=== PATIENT | male | born 1990 | race Caucasian/White ===

== ENCOUNTER 2021-03-02 13:57 | Outpatient (RCR) | payer BC, SELFPAY ==
--- NOTE | 2021-03-02 15:12 | HP.PTEVAL_ITS ---
Patient's Visit Information ADAL DIAL is a 30 year old M referred to Physical Therapy by CECIL Matthews with a diagnosis of LB muscle strain. Date of Evaluation: 03/02/21 Physical Therapist: Gil Gracia DPT, OCS, CSCS - Visit Plan Frequency: 3x /Week Duration: 2-4 Weeks Plan: 3x/week for 2-4 weeks for. 1. upper leg rollotu and stretching. LB ROM to HEP. core mat strength to HEP. gym based general ex to community gym. - Subjective Bad back. I have consistent soreness and pain. Had laparoscopic surgery in [place] a couple years ago and has been sore ever since. Not terribly active to exercise. Has seen chiropractoic and it helps for a while. Recently has gotten nerve pain going down to feet at times and was mostly at night and into pad of feet. No numbness or tingly in legs. In pain 60% of time. Pattern i standing in place makes him fatigued. Stretching helps. Sleep is a problem as he gets up with neck adn back stiffness, again stretching helps. movement helps. Sitting is crummy posture but can do OK if sits appropriately. 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 Tired after work. Hobbies include indoor stuff video games and the like. Hiking or running does not make him worse. Crossfit. - Pain LBP Pain Intensity (Out of 10): 0 Pain Intensity Range: 0, 1 - Objective Walks stiff but normal and I, short steps. Trasnfer I. HS and quads and hip flexors are moderately. Posture is flat lordosis in LS,, kyphotic thoracic spine. LB AROM ext mod limited, flexion LB min deficits, SB min deficits. Lumbar compression-. SLR and slump -. reflexes 2/3 patella and achilles. Sensation LE WNl to gross light touch. Strength LE 4 except R HS which is 4-. Core strength 3+ without pain rotations and ext and flexion - Balance/Special Test Scores Oswestry Low Back Score: 4 - Goals Goal 1:: Sleep without waking due to back pain Goal Time Frame: 2-4 Weeks Goal 2:: I appropriate HEP of core adn Stretching and gym ex to tolerance. Goal Time Frame: 2-4 Weeks Goal 3:: Pain 0-1/10 at all times and 90% better. Goal Time Frame: 2-4 Weeks Goal 4:: Work without increased pain Goal Time Frame: 2-4 Weeks - Rehabilitation Potential Physical Therapy Diagnosis: LB strain and deconditioning. Rehabilitation Potential: Fair - Anticipated Interventions Patient/Client Instruction: Educate patient on: Condition, Plan of Care For the Purpose of:: To decrease pain, To increase ROM, To improve muscle performance and motor function Therapeutic Exercise to Include: Strength training, Postural training, Flexibilty training, Active ROM, Dynamic Lumbar Stabilization For the Purpose of:: To decrease pain, To improve nutrient delivery to tissue, To improve muscle performance and motor function, To improve performance and independence with ADL's, To improve health of tissue Manual Therapy Techniques to Include: Mobilization, Soft tissue mobilization For the Purpose of:: To decrease pain, To increase ROM Thank you for the opportunity to evaluate your patient. For Medicare and Medicare HMO plans, please review the plan of care and approve it. It will need to be FAXED BACK to us at [phone] for Medicare purposes. For Medicare only, by signing this I certify the plan of care. Please let me know if there are questions or concerns regarding this plan of care. Physician Signature: Date:
--- NOTE | 2021-04-16 14:49 | HP.PT.NRP ---
ADAL DIAL was seen in my office for initial evaluation on 03/02/21. The following Plan of Care was established for this patient: Initial Frequency: 3x /Week Initial Duration: 2-4 Weeks Patient/Client Instruction: Educate patient on: Condition, Plan of Care For the Purpose of:: To decrease pain, To increase ROM, To improve muscle performance and motor function Therapeutic Exercise to Include: Strength training, Postural training, Flexibilty training, Active ROM, Dynamic Lumbar Stabilization For the Purpose of:: To decrease pain, To improve nutrient delivery to tissue, To improve muscle performance and motor function, To improve performance and independence with ADL's, To improve health of tissue Manual Therapy Techniques to Include: Mobilization, Soft tissue mobilization For the Purpose of:: To decrease pain, To increase ROM This patient was last seen in our office 03/02/21. Pertinent comments regarding their Physical therapy will appear below: Pt seen one visit of POC and further visits denied by insurance. Will discontinue at this time. At this point I will be discontinuing this patient from physical therapy. I would be happy to see this patient again in the future if found appropriate by the physician. Thank you! Gil Gracia, DPT, OCS, CSCS Balance/Gait/Functional tests - Balance/Special Test Scores Oswestry Low Back Score: 4
== END 2021-03-02 19:00 | disposition home or self-care (01) ==
LOC: PT 13:57
PROVIDERS: Referring Provider Physician Assistant Surgical; Visit Provider Physician Assistant Surgical
DX: S39.012D Strain of muscle, fascia and tendon of lower back, subsequent encounter (principal); X50.3XXD Overexertion from repetitive movements, subsequent encounter
CPT/HCPCS: 97161

== ENCOUNTER → 2022-07-19 | Outpatient (CLI) | payer BC, SELFPAY ==
[2022-07-19 08:00] VITALS: BP 120/79; PULSE 89; RESP 16; TEMP 35.6; BMI 28.2
[2022-07-19] MEDS: 0.9% NaCl Peripheral Flush Adult/Peds IV (08:05)
[2022-07-19] MEDS: 0.9% NaCl IVPB Med Flush (250 mL) 15 ML IV (08:27)
[2022-07-19] MEDS: Dextrose 5% 250 ML 15 ML IV (08:48)
[2022-07-19 09:55] VITALS: BP 127/83; PULSE 80; RESP 16; TEMP 36; O2SAT 98
== END | disposition home or self-care (01) ==
DX: K50.819 Crohn's disease of both small and large intestine with unspecified complications (principal)
CPT/HCPCS: 96372; J7050; A4216; J2327

== ENCOUNTER → 2022-08-16 | Outpatient (CLI) | payer BC, SELFPAY ==
[2022-08-16 11:35] VITALS: BP 124/76; PULSE 85; RESP 16; O2SAT 96
[2022-08-16] MEDS: Dextrose 5% 250 ML 15 ML IV (11:39)
[2022-08-16 13:36] VITALS: BP 126/87; PULSE 86; RESP 16
== END | disposition home or self-care (01) ==
LOC: MEDOUTP 11:25
DX: K50.819 Crohn's disease of both small and large intestine with unspecified complications (principal)
CPT/HCPCS: 96365; A4216; J2327

== ENCOUNTER → 2022-09-20 | Outpatient (CLI) | payer BC, SELFPAY ==
[2022-09-20 10:14] VITALS: BP 133/101; PULSE 77; RESP 14; TEMP 35.8; O2SAT 96; BMI 28.2
[2022-09-20] MEDS: Dextrose 5% 250 ML 15 ML IV (10:28)
[2022-09-20 12:29] VITALS: BP 131/91; PULSE 88; RESP 16; TEMP 36.2; O2SAT 95
== END | disposition home or self-care (01) ==
DX: K50.819 Crohn's disease of both small and large intestine with unspecified complications (principal)
CPT/HCPCS: 96365; A4216; J2327

== ENCOUNTER 2022-10-30 15:00 | Emergency (ER) | payer OTHER, BC, SELFPAY ==
[2022-10-30 15:01] VITALS: BP 149/104; PULSE 62; RESP 16; TEMP 36.8; O2SAT 98
[2022-10-30 15:22] VITALS: BMI 27.4
--- NOTE | 2022-10-30 15:25 | RAD_ITS ---
STUDY: X-RAY - LEFT ANKLE REASON FOR EXAM: Male, 32 years old. Twisting injury. Pain. TECHNIQUE: 3 view(s) of the ankle. COMPARISON: None. FINDINGS: Normal visualized distal tibia and fibula. Normal medial and lateral malleoli. Normal tibiotalar articulation and ankle mortise. Normal visualized talus and calcaneus. The visualized subtalar, talonavicular, calcaneocuboid and tarsal articulations are normal. Diffuse soft tissue swelling. RAD/Ankle min 3 Views IMPRESSION: Diffuse soft tissue swelling. Worse on the lateral side. Electronically Signed: Obinna Azul MD at 15:40 EDT ,
--- NOTE | 2022-10-30 15:52 | EDS_ITS ---
HPI History of Present Illness Chief Complaint: Lower Extremity Injury Narrative Narrative: Patient is a 32-year-old male who is presenting to the ER with chief complaint of left ankle pain. Patient is play basketball prior to arrival. Patient stated that he just started playing basketball, and within a couple minutes he went to jump up to grab a rebound, landed on his left ankle with a inversion injury. Patient is uncertain if he stepped on a uneven part of the hard top versus stepping on somebody's foot, he is unsure. Patient stated that he rolled his ankle, heard a popping sensation, and noted swelling to the left ankle. Patient is having hard time ambulating on the ankle. There was a nurse that was playing with him as well, the nurse gave him 2 Motrin at that time. Patient had ice applied when he got to the ER. Patient wants nothing else for pain at this time. Patient did not fall. He has no other acute injury. Patient's only complaint of left ankle pain. Patient's is at bedside. 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 Patient has never injured, or broken his left ankle or foot previously. [facility] Medical History Anemia Chronic neck and back pain Crohn's disease Diarrhea Fatigue Physical exam, pre-employment Severe headache Home Medications risankizumab-rzaa 360 mg/2.4 mL (150 mg/mL) subcut wearable injector (Skyrizi) ml subcut 10/15/22 [History Last Taken Unknown] Allergy/AdvReac Type Severity Reaction Status Date / Time No Known Allergies Allergy Verified 10/30/22 15:03 Family History Other Hypertension Surgical History History of intestinal surgery Social History Smoking Status: Never smoker alcohol intake: never ROS ROS ED ROS Narrative REVIEW OF SYSTEMS: Unless otherwise stated in this report the patient's positive and negative responses for review of systems for constitutional, eyes, ENT, cardiovascular, respiratory, gastrointestinal, neurological, , musculoskeletal, and integument systems and related systems to the presenting problem are either stated in the history of present illness or were not pertinent or were negative for the symptoms and/or complaints related to the presenting medical problem. EXAM Physical Exam Narrative Exam Narrative: Vital signs reviewed and patient is not hypoxic. General: The patient appears well and in no apparent distress. Patient is resting comfortably on cart. Not toxic, lethargic, or listless. Skin: Warm, dry, no pallor noted. There is no rash noted. Head: Normocephalic, atraumatic Eye: Normal conjunctiva, no drainage, EOMI. PERRL. Ears, Nose, Mouth, and Throat: oral mucosa is moist. Nares patent. Mouth without vesicles. Cardiovascular: Regular Rate and Rhythm, no murmurs, gallops, or rubs Respiratory: Patient is in no distress, no accessory muscle use, lungs are clear to auscultation, no wheezing, rales or rhonchi Musculoskeletal: The patient has full range of motion of all extremities and joints with no difficulty except the left ankle. Patient has moderate swelling/inflammation with no ecchymosis to left lateral malleolus with moderate tenderness palpation to distal fibula. Patient has minimal tenderness palpation to the medial malleolus of the left ankle. Patient's Achilles tendon is intact. No pain to proximal fibular head, no pain to the base of the left fifth metatarsal. Patient has no pain to the midfoot or the left foot. Patient is full range of motion of his left knee and no difficulty.. Patient has no motor, no sensory deficits. Neurological: A&O x4, normal speech, no focal neurological deficits. Psychiatric: Cooperative Const Vital Signs: 10/30/22 15:01 Temperature 98.2 F Temperature Source Temporal Pulse Rate 62 Respiratory Rate 16 Blood Pressure 149/104 H Blood Pressure Mean 119 Pulse Ox 98 Oxygen Delivery Method Room Air MDM MDM MDM Narrative Medical decision making narrative: Patient left ankle x-ray shows no acute fracture dislocation or acute abnormality. Patient was placed in a Gulshan wrap, Aircast and crutches. Education on ice was done at bedside. Patient will use weightbearing as tolerated. Patient will follow-up with and establish PCP along with orthopedic surgery. Name and number was provided. Patient does not currently have a PCP. Patient was educated on alternate Tylenol and Motrin/ibuprofen for pain. Patient will be weightbearing as tolerated, patient will follow-up with PCP orthopedics, no question of discharge History & Record Review Additional record(s) reviewed:: Prior inpatient record Radiography Chest X-Ray - ED: Read by ED Physician (Left ankle x-ray shows no acute fracture, dislocation or acute normality. Soft tissue swelling noted.) Diagnostic Testing: Clinical Impression(s) from Imaging Studies Ankle X-Ray 10/30/22 15:25 IMPRESSION: Diffuse soft tissue swelling. Worse on the lateral side. Electronically Signed: Obinna Azul MD at 15:40 EDT , Treatment and Re-Evaluation :: Procedure note: Patient was placed in a left Gulshan wrap, Aircast and crutches. Teaching treat was done at bedside. Splint was assisted with Dr. Ho. The patient was neurovascular intact before and after the splint was placed. The affected bones/injured area had proper alignment in a splint. Education on splint care at home was given at bedside. Patient and family had no questions at disposition. Discharge Plan Triage Chief Complaint: Lower Extremity Injury ED Provider: Abdoulaye Ho Dx/Rx/DC Orders Clinical Impression: Acute left ankle pain, Moderate left ankle sprain Instructions: Treating Ankle Sprains, ED Bandage Elastic Wrap, ED Ankle Sprain (Adult), ED RICE, ED Splints and Casts Prescriptions: No Action Skyrizi 360 mg/2.4 mL (150 mg/mL) wearable injector subcut Stand Alone Forms: ED Work / School Excuse Primary Care Provider: Care Physician,No Primary Referrals: Care Physician,No Primary [Primary Care Provider] - Activity Restrictions/Additional Instructions: Ice 20 minutes on, 20 minutes off. Alternate Tylenol Motrin every 4 hours. Follow-up follow-up with PCP and establish PCP orthopedic surgery if needed. Weightbearing as tolerated. Use crutches for the next 3 to 4 days at least. Eventually get rid of the crutches, then right of the Aircast, then read to the Gulshan wrap. Disposition Disposition: Home, Self Care
== END 2022-10-30 16:56 | disposition home or self-care (01) ==
PROVIDERS: Emergency Provider Emergency Medicine; Visit Provider Emergency Medicine
DX: S93.402A Sprain of unspecified ligament of left ankle, initial encounter (principal); K50.90 Crohn's disease, unspecified, without complications; Y93.67 Activity, basketball; X58.XXXA Exposure to other specified factors, initial encounter; Z79.899 Other long term (current) drug therapy
CPT/HCPCS: 29515; 73610; 99283

== ENCOUNTER → 2022-11-22 | Outpatient (CLI) | payer OTHER, BC, SELFPAY ==
--- NOTE | 2022-11-22 15:42 | RAD_ITS ---
STUDY: X-RAY - LEFT ANKLE REASON FOR EXAM: Male, 32 years old. Pain and swelling for 3 weeks TECHNIQUE: 3 view(s) of the ankle. COMPARISON: 10/30/2022 FINDINGS: Normal visualized distal tibia and fibula. Normal medial and lateral malleoli. Normal tibiotalar articulation and ankle mortise. Normal visualized talus and calcaneus. The visualized subtalar, talonavicular, calcaneocuboid and tarsal articulations are normal. Persistent but decreased lateral ankle soft tissue swelling. RAD/Ankle min 3 Views IMPRESSION: Persistent but decreased lateral ankle soft tissue swelling. No fracture or malalignment. MRI may be useful. Electronically Signed: Dwight Sood (Brooks), at 16:17 EDT ,
== END | disposition home or self-care (01) ==
LOC: MTRAD 15:39
PROVIDERS: Referring Provider Physician Assistant; Visit Provider Physician Assistant
DX: M25.572 Pain in left ankle and joints of left foot (principal); S93.402A Sprain of unspecified ligament of left ankle, initial encounter
CPT/HCPCS: 73610

== ENCOUNTER 2022-12-05 07:12 | Outpatient (CLI) | payer OTHER, BC, SELFPAY ==
--- NOTE | 2022-12-05 07:17 | MRI_ITS ---
HISTORY: Left lateral ankle pain, ligament sprain TECHNIQUE: Multiplanar and multisequence MR images of the left ankle were obtained without intravenous contrast. 195 images. COMPARISON: XR 11/22/2022, 10/30/2022. FINDINGS: BONE: Mild bone marrow edema of the medial and lateral malleoli. No acute fracture or osteochondral injury identified. JOINT: Articular cartilage intact. Trace tibiotalar joint fluid. Normal alignment. LIGAMENTS: Intact deltoid and anterior and posterior syndesmotic ligaments. Mildly attenuated anterior talofibular ligament. Mild increased signal in the posterior talofibular ligament. TENDONS: No Achilles tendon rupture. Increased signal in crescentic morphology of the peroneus brevis tendon. No high-grade tear of the flexor or extensor tendons. Trace noncircumferential fluid in the flexor tendon sheaths. PLANTAR FASCIA: No acute tear. SINUS TARSI: Preservation of fat in the sinus tarsi. OTHER SOFT TISSUES: No subcutaneous fluid collection or significant intramuscular edema. MRI/Lower Ext Joint Only (Routine) IMPRESSION: Mild bone marrow contusions of the medial and lateral malleoli of the left ankle. Split tear and tendinopathy of the peroneus brevis tendon. Mild anterior and posterior talofibular ligament sprain. Electronically Signed: Nohelia Woods MD at 9:06 EDT ,
== END 2022-12-05 23:59 | disposition home or self-care (01) ==
LOC: MRI 07:14
PROVIDERS: Referring Provider Physician Assistant; Visit Provider Physician Assistant
DX: S93.402D Sprain of unspecified ligament of left ankle, subsequent encounter (principal)
CPT/HCPCS: 73721; 97110

== ENCOUNTER 2023-01-13 10:30 | Outpatient (RCR) | payer OTHER, BC, SELFPAY ==
--- NOTE | 2022-11-15 12:07 | HP.PTEVAL_ITS ---
Patient's Visit Information ADAL DIAL is a 32 year old M referred to Physical Therapy by CECIL Carson with a diagnosis of L ankle sprain. Date of Evaluation: 11/15/22 Physical Therapist: Khari Estrada, PT, ATC - Visit Plan Frequency: 2-3x /Week Duration: 4-6 Weeks Plan: L ankle stretching and strengthening, PROM and mobs, balance and proprio, bike, and HEP - Subjective DOI: 10/30/22. Pt reports he was playing basketball at work and sprained his L ankle. Pt notes he has never sprained his L ankle like this before. Pt notes he had x-rays which revealed no fractures. Pt notes he has noticed a lot of improvement over the past 2 days. Pt reports he is still sore, but the pain has reduced some. Pt reports he has chromes disease, and that will on occasion refer pain down his legs and make his ankle hurt a little worse. Pt notes he was placed in an aircast at the hospital, but has since transitioned into an ankle brace which provides adequate support. Pt notes he is able to go for short walks now. Pt reports he has stairs at home and has a really difficult time trying to descend his stairs. 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 1/10 pain while sitting here at rest, 3/10 pain at worst (walking at the grocery store). Pt notes sleep difficulty at this time secondary to pain - Pain L ankle Pain Intensity (Out of 10): 1 Pain Intensity Range: 3 - Objective Neuro: B LE sensation is WNL to light touch. Palpation: Pt is very tender along the ant tib-fib ligament. Obvious swelling noted at this time. 1+pitting edema noted. Girth: L ankle 58 cm, R ankle 57 cm. ROM: L ankle DF= -12, PF= 42, Inv= 15, Ever= 2; R ankle DF= 8, PF= 53, Inver= 32, ever= 10 degrees. MMT: L ankle DF= 17, PF= 13, Inv= 10, Ever= 10 #F; R ankle DF= 33, PF= 40, Inver= 35, ever= 38 #F - Balance/Special Test Scores Lower Extremity Functional Score: 43 - Goals Goal 1:: Decrease L ankle pain x 50% to aid with sleep Goal Time Frame: 4-6 Weeks Goal 2:: Increase L ankle DF ROM x 20 degrees to aid with restoring a more normalized gait pattern Goal Time Frame: 4-6 Weeks Goal 3:: Increase L ankle strength x 5-10 #F to aid with preventing future ankle sprains Goal Time Frame: 4-6 Weeks Goal 4:: I with HEP Goal Time Frame: 4-6 Weeks - Rehabilitation Potential Physical Therapy Diagnosis: Pt has L ankle pain, weakness, and limited ROM secondary to L ankle sprain Rehabilitation Potential: Good - Anticipated Interventions Patient/Client Instruction: Educate patient on: Condition, Plan of Care For the Purpose of:: To improve self management Therapeutic Exercise to Include: Strength training, Endurance training, Balance training, Flexibilty training, Passive ROM, Active ROM For the Purpose of:: To decrease pain, To increase ROM, To improve muscle performance and motor function Cryotherapy (ice pack, ice massage): Yes For the Purpose of:: To decrease pain Thank you for the opportunity to evaluate your patient. For Medicare and Medicare HMO plans, please review the plan of care and approve it. It will need to be FAXED BACK to us at [phone] for Medicare purposes. For Medicare only, by signing this I certify the plan of care. Please let me know if there are questions or concerns regarding this plan of care. Physician Signature: Date:
--- NOTE | 2022-12-17 12:00 | HP.PTREVAL ---
Re-Evaluation Intro: CECIL Carson, It has been my pleasure to treat ADAL DIAL over the last 12 visits for L ankle sprain. Please see the progress note below for an update on the physical therapy plan of care! Subjective Subjective: Pt reports Objective Objective/Function: L ankle pain ranges from 1-3/10 L ankle MMT: DF= 35, PF= 54, Inv= 18, ever= 20 #F L ankle DF ROM: 5 degrees Pt is progressing well with pain and strength at this time Plan Plan Plan: L ankle stretching and strengthening, PROM and mobs, balance and proprio, bike, and HEP Balance/Gait/Functional tests Balance/Special Test Scores Lower Extremity Functional Score: 64 Goals Goals Goal 1:: Decrease L ankle pain x 50% to aid with sleep Goal Time Frame: 4-6 Weeks Goal Progress: Progressing Goal 2:: Increase L ankle DF ROM x 20 degrees to aid with restoring a more normalized gait pattern Goal Time Frame: 4-6 Weeks Goal Progress: Progressing Goal 3:: Increase L ankle strength x 5-10 #F to aid with preventing future ankle sprains Goal Time Frame: 4-6 Weeks Goal Progress: Progressing Goal 4:: I with HEP Goal Time Frame: 4-6 Weeks Anticipated Interventions Anticipated Interventions Patient/Client Instruction: Educate patient on: Condition and Plan of Care For the Purpose of:: To improve self management Therapeutic Exercise to Include: Strength training, Endurance training, Balance training, Flexibilty training, Passive ROM and Active ROM For the Purpose of:: To decrease pain, To increase ROM and To improve muscle performance and motor function Cryotherapy (ice pack, ice massage): Yes For the Purpose of:: To decrease pain Re-Evaluation Ending Re-evaluation ending: Please do not hesitate to contact me at [phone] by phone or if you have questions or concerns regarding this new plan of care! Sincerely, Khari Estrada, PT, ATC
--- NOTE | 2022-12-17 13:10 | HP.PTREVAL ---
Re-Evaluation Intro: CECIL Carson, It has been my pleasure to treat ADAL DIAL over the last 12 visits for L ankle sprain. Please see the progress note below for an update on the physical therapy plan of care! Subjective Subjective: Pt reports Objective Objective/Function: L ankle pain ranges from 1-3/10 L ankle MMT: DF= 35, PF= 54, Inv= 18, ever= 20 #F L ankle DF ROM: 5 degrees Pt is progressing well with pain and strength at this time Plan Plan Plan: L ankle stretching and strengthening, PROM and mobs, balance and proprio, bike, and HEP Balance/Gait/Functional tests Balance/Special Test Scores Lower Extremity Functional Score: 64 Goals Goals Goal 1:: Decrease L ankle pain x 50% to aid with sleep Goal Time Frame: 4-6 Weeks Goal Progress: Progressing Goal 2:: Increase L ankle DF ROM x 20 degrees to aid with restoring a more normalized gait pattern Goal Time Frame: 4-6 Weeks Goal Progress: Progressing Goal 3:: Increase L ankle strength x 5-10 #F to aid with preventing future ankle sprains Goal Time Frame: 4-6 Weeks Goal Progress: Progressing Goal 4:: I with HEP Goal Time Frame: 4-6 Weeks Anticipated Interventions Anticipated Interventions Patient/Client Instruction: Educate patient on: Condition and Plan of Care For the Purpose of:: To improve self management Therapeutic Exercise to Include: Strength training, Endurance training, Balance training, Flexibilty training, Passive ROM and Active ROM For the Purpose of:: To decrease pain, To increase ROM and To improve muscle performance and motor function Cryotherapy (ice pack, ice massage): Yes For the Purpose of:: To decrease pain Re-Evaluation Ending Re-evaluation ending: Please do not hesitate to contact me at [phone] by phone or if you have questions or concerns regarding this new plan of care! Sincerely, Khari Estrada, PT, ATC
--- NOTE | 2023-01-13 12:01 | HP.PTDCSUM ---
Discharge Summary D/C summary: It has been my pleasure to treat ADAL DIAL referred by CECIL Carson, with the diagnosis of L ankle sprain for a total of 24 visit(s). Discharge Date: Please see the following information for a summary of their discharge status. Subjective Subjective: I feel really good now Pain L ankle: Pain Intensity (Out of 10): 0 Overall Improvement % Improvement: 90 Objective Objective/Function: L ankle pain ranges from 0-3/10 L ankle MMT: DF= 42, PF= 55 #F L ankle DF ROM= 10 degrees Pt is I with HEP. Rx goals achieved Goals Goal 1:: Decrease L ankle pain x 50% to aid with sleep Goal Progress: Goal Met Goal 2:: Increase L ankle DF ROM x 20 degrees to aid with restoring a more normalized gait pattern Goal Progress: Goal Met Goal 3:: Increase L ankle strength x 5-10 #F to aid with preventing future ankle sprains Goal Progress: Goal Met Goal 4:: I with HEP Goal Progress: Goal Met Plan Plan: Discharge to HEP D/C Information d/c sentence: If there are questions or concerns regarding this patient's physical therapy, please feel free to call me at [phone]. Thank you for the referral of this patient. Sincerely, Khari Estrada, PT, ATC Balance/Gait/Functional tests Balance/Special Test Scores Lower Extremity Functional Score: 75
== END 2023-01-13 13:16 | disposition home or self-care (01) ==
LOC: PT 10:30
PROVIDERS: Referring Provider Physician Assistant; Visit Provider Physician Assistant
DX: S93.402D Sprain of unspecified ligament of left ankle, subsequent encounter (principal)
CPT/HCPCS: 97014; 97110; 97140; 97161; 97164; G0283

== ENCOUNTER 2023-12-28 10:29 | Emergency (ER) | payer OTHER, SELFPAY ==
[2023-12-28 10:30] VITALS: BP 132/92; PULSE 117; RESP 18; TEMP 36.1; O2SAT 97; BMI 28.3
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
--- NOTE | 2023-12-28 10:57 | CT_ITS ---
INDICATION: MANDIBLE INJURY EXAMINATION: CT FACIAL BONES - CT Maxillofacial W/O Contrast Injection TECHNIQUE: Helically acquired images were obtained of the facial bones. A radiation dose optimization technique was used for this scan. The protocol utilizes one or more of the following dose reduction techniques: automated exposure control, adjustment of mA and/or kV according to patient size,and/or use of iterative reconstruction technique. IV Contrast dosage and agent: None. RADIATION DOSAGE (If Supplied By Facility): CTDIvol = ( 29.38 ) mGy, DLP = ( 620.92 ) mGycm COMPARISON: Prior study dated: Head CT dated December 28, 2023 FINDINGS: SOFT TISSUES: No focal subcutaneous swelling. No discrete fluid collections. VISUALIZED PARANASAL SINUSES: There is trace opacification of the ethmoid and maxillary sinuses. VISUALIZED MASTOID AIR CELLS: Clear. FACIAL BONES, MANDIBLE AND TMJs: There is a fracture of the anterior nasal spine. No lytic or blastic abnormality. VISUALIZED DENTITION: No periodontal osseous erosion. ORBITAL CONTENTS: Both globes, extraocular muscles and retrobulbar fat appear unremarkable. CT/Sinus/Facial Bone IMPRESSION: Anterior nasal spine fracture. Minimal opacification of the ethmoid and maxillary sinuses consistent with a history of sinusitis. Electronically Signed: Rita Armenta MD at 11:48 EDT ,
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
[2023-12-28] MEDS: Acetaminophen 500 MG Tablet 1000 MG PO (11:25)
[2023-12-28] MEDS: Diphth,Pertuss(Acell),Tet Vac 0.5 ML Vial IM (11:25)
[2023-12-28 12:00] VITALS: BP 142/99; PULSE 84; RESP 16; TEMP 36.6; O2SAT 99
== END 2023-12-28 12:15 | disposition home or self-care (01) ==
LOC: ED 11:10
PROVIDERS: Emergency Provider Emergency Medicine; Visit Provider Emergency Medicine
DX: S06.0X0A Concussion without loss of consciousness, initial encounter (principal); S80.211A Abrasion, right knee, initial encounter; S00.511A Abrasion of lip, initial encounter; S80.212A Abrasion, left knee, initial encounter; Y04.8XXA Assault by other bodily force, initial encounter
CPT/HCPCS: 70450; 70486; 90715; 99282